=== PATIENT | female | born 1950 | race Caucasian/White ===

== ENCOUNTER → 2017-01-07 | Outpatient (CLI) | payer MEDICARE ==
--- NOTE | 2017-01-08 08:14 | MR ---
EXAMINATION TYPE: MR lumbar spine wo/w con DATE OF EXAM: 01/07/2017 COMPARISON: 01/02/2011 HISTORY: Back pain Contrast: 7 mL Gadavist TECHNIQUE: T1 and T2 axial and sagittal, postcontrast T1 sagittal and axial images of the lumbar spi ne are submitted. FINDINGS: There is no abnormal signal seen within the visualized spinal cord or paraspinal soft tissu es. At L1-2 there is no disc herniation or canal stenosis. No foraminal encroachment. Facet arthropathy n oted. At L2-3 there is facet arthropathy and ligamentum flavum hypertrophy. No foraminal encroachment or ca nal stenosis. No disc herniation. Very mild right lateral disc bulging At L3-4 there is moderate degenerative disc disease. There is broad-based central disc protrusion wit h facet arthropathy and ligamentum flavum hypertrophy. Moderate to severe canal stenosis and moderate bilateral foraminal encroachment. At L4-5 there is central disc bulging with postsurgical change. No canal stenosis or foraminal encro achment. At L5-S1 there is generative disc disease with postsurgical changes. No diagnostic evidence of canal stenosis. Right central and paracentral disc bulging with mild right-sided foraminal encroachment. Fi nding is stable from previous exam. Artifact does limit evaluation the spinal canal at this level. IMPRESSION: 1. There is now a broad-based central disc protrusion with arthropathy of the facet joints and hypert rophy ligamentum flavum at L3-4 resulting in severe canal stenosis and bilateral moderate foraminal e ncroachment. 2. Postsurgical change with central disc bulging at L4-5 but no canal stenosis or foraminal encroachm ent. 3. Severe degenerative disc disease and right paracentral disc bulging and right foraminal encroachm ent L5-S1 appears stable from previous
== END | disposition home or self-care (01) ==
LOC: RADMRIMAIN 17:14
PROVIDERS: ATTEND Family Medicine
DX: M48.06 Spinal stenosis, lumbar region (principal); M51.26 Other intervertebral disc displacement, lumbar region; M51.36 Other intervertebral disc degeneration, lumbar region; M46.86 Other specified inflammatory spondylopathies, lumbar region
CPT/HCPCS: 82565; 72158; A9581

== ENCOUNTER → 2017-06-17 | Outpatient (CLI) | payer MEDICARE ==
--- NOTE | 2017-06-17 13:51 | CT ---
EXAMINATION TYPE: CT cervical spine wo con DATE OF EXAM: 06/17/2017 COMPARISON: NONE HISTORY: Cervical Disc Degeneration CT DLP: 427.[address] of the cervical spine was performed with bone and soft tissue window settings submitted . Coronal and sagittal reconstruction is obtained. There is been interval placement of posterior occipital cervical stabilization rods. Rods extend from the skull base with screw fixation at C5 bilaterally. 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 Spinal canal at the C1-C2 level now measures 11.6 mm versus 8 mm previously. Again noted are degenerative changes along the C1-2 lateral masses. Predental space widening has been reduced to 4.3 mm versus 5.9 mm previously. C2-3: Within normal limits. C3-4: Advanced degenerative disc/endplate degenerative change noted. Disc endplate complex noted effa zakia the ventral thecal sac. No evidence for central stenosis. Mild bilateral foraminal encroachment. C4-5: Changes of anterior cervical discectomy and fusion. Anterior fixation plate and intervertebral body spacers are unchanged in position. Mild posterior hypertrophic change. Posterior screw extends i nto the right neural foramen at this level. C5-6: Changes of anterior cervical discectomy and fusion. Anterior fixation plate and intervertebral body spacers are in place. Mild posterior hypertrophic change effaces the ventral thecal sac. No evid ence for central stenosis. There is right lateral recess stenosis and bilateral right greater than le ft foraminal encroachment. C6-7: Moderate degenerative disc space narrowing. Posterocentral subligamentous herniation suspected. There appears to be a mild central stenosis. Bilateral foraminal encroachment seen. C7-T1: Within normal limits. IMPRESSION: 1. Interval placement of posterior occipital cervical stabilization rods. This does reduce the wideni ng of the predental space and increases AP canal diameter at the C1-2 level. There is however a screw on the right at the C4-5 level which extends into the neural foramen. 2. Postsurgical changes of ACDF appears stable. 3. Subligamentous disc herniation and central stenosis at C6-7. See above.
== END | disposition home or self-care (01) ==
LOC: RADCTMAIN 13:10
PROVIDERS: ATTEND Internal Medicine Rheumatology
DX: M48.02 Spinal stenosis, cervical region (principal); M50.223 Other cervical disc displacement at C6-C7 level; M47.812 Spondylosis without myelopathy or radiculopathy, cervical region; Z98.890 Other specified postprocedural states
CPT/HCPCS: 72125

== ENCOUNTER → 2017-11-12 | Outpatient (CLI) | payer MEDICARE, OTHER ==
--- NOTE | 2017-11-13 00:27 | MR ---
EXAMINATION TYPE: MR lumbar spine wo/w con DATE OF EXAM: 11/12/2017 COMPARISON: 01/07/2017 HISTORY: Low back pain TECHNIQUE: Multiplanar, multisequence images of the lumbar spine were acquired utilizing 7.5 mL intravenous Gada vist gadolinium contrast. There is 5 mm anterior subluxation of L3 in relation to L4. This is a change compared to old exam. Th ere is a large posterior L3-4 lumbar disc herniation encroaching on the spinal canal with resultant s evere spinal stenosis. This stenosis is significantly worse than last exam. Disc herniation is more n oticeable due to the subluxation deformity. There is slight compression of the superior endplate on the right side of the L1 vertebral body. Ther e are posterior rods and screws fusing the lumbar spine from L4 to S1. I see no pathologic enhancemen t. The sacroiliac joints appear intact. There is disc prosthesis at L4-5. IMPRESSION: Degenerative first-degree L3-4 spondylolisthesis. No fracture. Subluxation has progressed significant ly compared to old exam. There is moderate spinal stenosis at L3-4 that is worse than last exam due t o the disc herniation and subluxation deformity. There is a new mild compression deformity of the right side of the L1 vertebral body compared to old exam.
== END ==
LOC: RADMRIMAIN 06:37
PROVIDERS: ATTEND Family Medicine
DX: M43.16 Spondylolisthesis, lumbar region (principal); M48.061 Spinal stenosis, lumbar region without neurogenic claudication; S32.019A Unspecified fracture of first lumbar vertebra, initial encounter for closed fracture
CPT/HCPCS: 72158; A9581

== ENCOUNTER → 2019-09-26 | Outpatient (CLI) | payer MEDICARE, OTHER ==
[~2019-09-26] MED LIST: DENOSUMAB 60 MG/ML 1 ML SYRINGE SQ ONE
[2019-09-26 10:04] VITALS: BP 137/82; PULSE 72; RESP 16; TEMP 97.9
== END | disposition home or self-care (01) ==
LOC: PROCWHC3 09:52
PROVIDERS: ATTEND Internal Medicine
DX: M81.0 Age-related osteoporosis without current pathological fracture (principal)
CPT/HCPCS: 96372; J0897

== ENCOUNTER 2019-11-13 09:23 | Day surgery (SDC) | payer MEDICARE, OTHER ==
[2019-10-31 12:37] VITALS: BMI 22.4
[2019-11-13] MEDS: LACTATED RINGERS 1,000 ML IV SCH ×2 (10:16→10:20)
[2019-11-13 10:19] VITALS: TEMP 97.2
[2019-11-13] MEDS ORDERED: LIDOCAINE 1% INJ 10MG/ML (20 ML MDV) ONE (10:23)
[2019-11-13] MEDS ORDERED: PROPOFOL 10 MG/ML 20 ML VIAL IV ONE (10:23)
[2019-11-13] MEDS ORDERED: LACTATED RINGERS 950 ML IV ONE (10:24)
--- NOTE | 2019-11-13 11:05 | P.PCN ---
Date of Procedure: 11/13/19 Description of Procedure: Brief history: Patient is a pleasant 69-year-old female presenting for an elective upper endoscopy as well as colonoscopy as a part of evaluation of epigastric abdominal pain, constipation and change in bowel habits. No prior colonoscopy. No family history of colon cancer. Procedure performed: Esophagogastroduodenoscopy with biopsy Colonoscopy Estimated blood loss: Minimal. Preoperative diagnosis: Epigastric abdominal pain, constipation, altered bowel function, no prior colonoscopy. Anesthesia: MAC Procedure: After informed consent was obtained from the patient was brought into the endoscopy unit and IV sedation was administered by anesthesia under continuous monitoring. Initially upper endoscopy was done. The Olympus GF 190 video endoscope was inserted into the mouth and esophagus intubated without any difficulty and was gradually advanced into the stomach and duodenum and carefully examined. The bulb and second part of the duodenum appeared normal, with biopsies taken. The scope was then withdrawn into the stomach adequately insufflated with air and upon careful examination the antrum and body, cardia and fundus appeared normal, except for some mild scattered erythema in the antrum and body suggestive of mild gastritis with biopsies taken. The scope was then withdrawn into the esophagus. The GE junction was located at 38 cm to the incisors, and biopsies. It appeared regular with no erythema erosions or ulcerations. Rest of the esophagus appeared normal. Patient tolerated the procedure well. At this time the patient continued to remain sedation. Initial digital rectal examination was normal. Olympus CF 190 video colonoscope was then inserted into the rectum and gradually advanced to the cecum without any difficulty. Careful examination was performed as the scope was gradually being withdrawn. The prep was excellent. The cecum, ascending colon, transverse colon, descending colon, sigmoid colon and rectum appeared normal. A few small scattered diverticula noted in the left colon. Retroflexion was performed in the rectum and no lesions were noted, low-grade internal hemorrhoids. Patient tolerated the procedure well. Impression: 1. Mild gastritis, antrum body biopsied. Biopsies of the duodenum and GE junction. 2. Mild left colonic diverticulosis. Otherwise normal-appearing colon from rectum to cecum. Recommendations: Findings of this examination were discussed with the patient. Await pathology from biopsies. Follow up in gastroenterology clinic as previously scheduled. Continue current medical management. Repeat colonoscopy in 10 years for screening for malignant neoplasm of the colon, or sooner if signs or symptoms which warrant further evaluation develop.
[2019-11-13 11:08] VITALS: RESP 16
[2019-11-13 11:40] VITALS: BP 133/66; PULSE 73
== END 2019-11-13 12:00 | disposition home or self-care (01) ==
LOC: ORWHC2ENDO 09:23
PROVIDERS: ATTEND Internal Medicine
DX: K57.30 Diverticulosis of large intestine without perforation or abscess without bleeding (principal); K29.50 Unspecified chronic gastritis without bleeding; K64.8 Other hemorrhoids; K21.9 Gastro-esophageal reflux disease without esophagitis; I48.91 Unspecified atrial fibrillation; E78.5 Hyperlipidemia, unspecified; F17.210 Nicotine dependence, cigarettes, uncomplicated; M06.9 Rheumatoid arthritis, unspecified; Z91.048 Other nonmedicinal substance allergy status; Z79.82 Long term (current) use of aspirin; Z79.899 Other long term (current) drug therapy; Z90.49 Acquired absence of other specified parts of digestive tract; Z98.890 Other specified postprocedural states; Z86.73 Personal history of transient ischemic attack (TIA), and cerebral infarction without residual deficits; Z79.01 Long term (current) use of anticoagulants; Z88.1 Allergy status to other antibiotic agents
CPT/HCPCS: 45378; 43239; 88305; J2001; J2704